=== PATIENT | female | born 1995 | race Caucasian/White ===

== ENCOUNTER 2018-08-09 22:07 | Emergency (ER) | payer BC, OTHER ==
[~2018-08-09] VITALS: Ht 165.1 cm; Wt 64.0 kg
[2018-08-09 22:39] VITALS: BP 119/74
== END 2018-08-09 22:41 | disposition home or self-care (01) ==
LOC: ED 22:38
DX: S09.22XA Traumatic rupture of left ear drum, initial encounter (principal); X58.XXXA Exposure to other specified factors, initial encounter; Y93.89 Activity, other specified; Y92.89 Other specified places as the place of occurrence of the external cause; Y99.8 Other external cause status
CPT/HCPCS: 99283

== ENCOUNTER 2018-11-24 08:28 | Day surgery (SDC) | payer BC ==
[2018-11-21 12:08] LABS: HCG UR SG 1.022 (1.003-1.030); MICROSCOPIC NOT IND
[2018-11-21 12:16] LABS: CULTURE INDICATED? NO
[~2018-11-24] VITALS: Ht 165.1 cm; Wt 62.7 kg
[~2018-11-24 08:28] MED LIST: MONT10TA6 PO; NORE-120 PO
[2018-11-24] MEDS ORDERED: MIDAZOLAM 1 MG/ML, 2ML ONE (08:31)
[2018-11-24] MEDS ORDERED: LIDOCAINE-MPF 2% ,5ML ONE (08:32)
[2018-11-24] MEDS ORDERED: DEXAMETHASONE 4 MG/ML, 1ML ONE ×2 (08:32)
[2018-11-24] MEDS ORDERED: FENTANYL PF 100 MCG/2ML ONE ×2 (08:32→10:49)
[2018-11-24] MEDS ORDERED: ONDANSETRON 2MG/ML, 2ML ONE (08:32)
[2018-11-24] MEDS ORDERED: PROPOFOL 10 MG/ML, 20ML ONE (08:32)
[2018-11-24] MEDS ORDERED: CEFAZOLIN 1,000 MG ONE ×2 (08:35)
[2018-11-24] MEDS ORDERED: LACTATED RINGERS 1,000 ML IV SCH (08:39)
[2018-11-24 08:52] VITALS: BP 117/83
[2018-11-24] MEDS ORDERED: GABAPENTIN 300 MG CAPSULE PO ONE (09:00)
[2018-11-24] MEDS ORDERED: ACETAMINOPHEN 500 MG TABLET PO ONE (09:00)
[2018-11-24] MEDS ORDERED: ONDANSETRON ODT 8 MG PO ONE (09:00)
[2018-11-24] MEDS ORDERED: ONDANSETRON ODT 8 MG ONE (09:04)
[2018-11-24] MEDS ORDERED: BUPIVACAINE/PF-EPI 0.5% 1:200K ONE (09:31)
[2018-11-24] MEDS ORDERED: MEPERIDINE/PF 25MG/0.5ML IVPush PRN (10:00)
[2018-11-24] MEDS ORDERED: ONDANSETRON 2MG/ML, 2ML IV PRN (10:00)
[2018-11-24] MEDS ORDERED: HYDROmorphone 2 MG/ML, 1ML IVPush PRN (10:00)
[2018-11-24] MEDS ORDERED: ALBUTEROL SULFATE 2.5 MG/3 ML NPPB PRN (10:00)
[2018-11-24] MEDS ORDERED: LORazepam 2 MG/ML, 1ML IVPush PRN (10:00)
[2018-11-24] MEDS ORDERED: METOCLOPRAMIDE 5 MG/ML, 2ML IV PRN (10:00)
[2018-11-24] MEDS: FENTANYL PF 100 MCG/2ML IV PRN ×2 (10:51→11:24)
[2018-11-24] MEDS ORDERED: HYDROmorphone 2MG TABLET PO PRN (11:00)
[2018-11-24] MEDS ORDERED: HYDROcodone/APAP 5/325 TABLET ONE (12:44)
[2018-11-24] MEDS ORDERED: ONDANSETRON ODT 4 MG ONE (13:11)
[2018-11-24] MEDS ORDERED: ROCURONIUM 10MG/ML,5ML ONE (15:02)
[2018-11-24] MEDS ORDERED: SUCCINYLCHOLINE 20 MG/ML, 10ML ONE (15:02)
[2018-11-24] MEDS ORDERED: GLYCOPYRROLATE 0.2MG/1ML, 5ML ONE (15:02)
[2018-11-24] MEDS ORDERED: NEOSTIGMINE 1 MG/ML, 10ML ONE (15:02)
== END 2018-11-24 13:20 | disposition home or self-care (01) ==
LOC: OR 08:28 → OUT 13:20
PROVIDERS: ATTEND Obstetrics & Gynecology
DX: N83.8 Other noninflammatory disorders of ovary, fallopian tube and broad ligament (principal); N83.12 Corpus luteum cyst of left ovary; K59.09 Other constipation; J45.909 Unspecified asthma, uncomplicated; Z88.5 Allergy status to narcotic agent; Z91.030 Bee allergy status; Z84.89 Family history of other specified conditions
CPT/HCPCS: 58662; 81003; 81025; J0330; J0690; J1100; J2250; J2704; J2710; J3010; J7120; Q0162; J2405